=== PATIENT | male | born 1995 | race Caucasian/White ===

== ENCOUNTER 2017-04-21 13:24 | Inpatient (IN) ==
[2017-04-21] MEDS ORDERED: SODIUM CHLORIDE 0.9% 1,000 ML IV STA (14:01)
[2017-04-21] MEDS ORDERED: CLINDAMYCIN INJ 600 MG in PREMIX 1 EACH IV STA (14:09)
[2017-04-21 14:20] LABS: Albumin 3.9 G/DL (3.4-5.0); Bilirubin,Total 0.8 MG/DL (0.2-1.0); Calcium 8.9 MG/DL (8.5-10.1); Lactic Acid 1.5 MMOL/L (0.4-2.0); Osmolality,Calculated 274.5 MOS/KG (273-304); Potassium 3.4 MMOL/L (3.5-5.1); Total Protein 7.1 G/DL (6.4-8.3)
[2017-04-21] MEDS ORDERED: CLINDAMYCIN 600 MG/4 ML VIAL ONE (14:20)
--- NOTE | 2017-04-21 14:27 | Emergency Department Note ---
Arrival - Arrival Chief Complaint: Nausea/Vomiting/Diarrhea Stated Complaint: vomitting black vomit ED Nursing Triage Note: Pt c/o nausea, vomiting, body pain, and chills. Pt was seen here yesterday for a ?abscess on his right arm. Mode of Arrival: Ambulatory Limitations: No Limitations Source: Patient Time Seen by Provider: 04/21/17 13:46 - History of Present Illness HPI Narrative: This is a 21-year-old male patient presents the ED complaining of some fever and chills that began today. Patient also noticed 3 abscesses to the right arm last Tuesday. These places have become much larger and more tender over the last several days. Patient had nausea vomiting since noon today. Patient was seen in the nonurgent yesterday and was given a prescription we have which he has not gotten filled. Patient denies any diarrhea. Patient's past medical history is unremarkable. Patient is a non-smoker. Allergies/Adverse Reactions: Allergies Allergy/AdvReac Type Severity Reaction Status Date / Time loratadine [From Claritin] AdvReac Nose Bleed Verified 04/20/17 11:13 tramadol AdvReac Unknown/Unable Verified 04/20/17 11:13 to obtain Home Medications: Home Medications Medication Instructions Recorded Confirmed Type Clindamycin HCl [Clindamycin Cap] 450 mg PO Q8HR #21 capsule 04/20/17 04/21/17 Rx Review of System - Review of System Constitutional: Present: chills, fever Respiratory: Absent: cough Cardiovascular: Absent: chest pain Gastrointestinal: Present: nausea, vomiting Musculoskeletal: Present: as per HPI, arm pain (Right) Medical,Surgical,& Family Hx - Medical History Medical History: noncontributory - Social History Smoking Status: Current every day smoker Exam Vital Signs: Vital Signs Temperature 99.9 F H 04/21/17 13:33 Pulse Rate 114 H 04/21/17 13:33 Respiratory Rate 20 04/21/17 13:33 Blood Pressure 140/78 04/21/17 13:33 O2 Sat by Pulse Oximetry 97 04/21/17 13:25 - General General appearance: alert, in distress (Secondary to right arm pain) - Head Head exam: Present: atraumatic - Eye Eye exam: Present: normal appearance, PERRL - ENT ENT exam: Present: normal exam - Neck Neck exam: Present: normal inspection - Chest Chest inspection: Present: normal inspection - Respiratory Respiratory exam: Present: normal lung sounds bilaterally. Absent: rales, respiratory distress - Cardiovascular Cardiovascular exam: Present: normal rhythm, tachycardia, normal heart sounds. Absent: murmur - Abdominal Exam Abdominal exam: Present: soft, normal bowel sounds. Absent: distention, tenderness - Extremities Exam Extremities exam: Present: tenderness (Right arm), other (Patient has 3 lesions noted to his right arm with surrounding erythema increased warmth and tenderness. There is no fluctuance noted. There is no drainage at the present time.) - Back Exam Back exam: Present: normal inspection - Neurological Exam Neurological exam: Present: alert, oriented X3. Absent: motor sensory deficit - Psychiatric Psychiatric exam: Present: normal affect, normal mood - Skin Skin exam: Present: warm, other (As noted on extremity exam) Course Course Narrative: Patient discussed with the hospitalist. Results - Labs CBC & BMP: 04/21/17 13:51 04/21/17 13:51 Lab Results: I have reviewed the patients labs Disposition Clinical Impression: Cellulitis of right arm, Possible abscess right arm Case discussed with: patient Disposition: Still a Patient Condition: Guarded Additional Instructions: Admit to Dr. nguyen
[2017-04-21 14:28] LABS: Basophils % 0.3 % (0.0-0.8); Eosinophils # 0.2 10*3/uL (0.0-0.87); Immature Granulocytes % 0.3 %; Immature Granulocytes Absolute 0.05 #; Lymphocytes # 1.8 10*3/uL (1.4-4.0); Lymphocytes % 12.7 % (21.2-54.2); Mean Corpuscular HGB Conc 38.2 GM/DL (32-36); Mean Corpuscular Hemoglobin 32 PG (27-34); Mean Corpuscular Volume 82.4 FL (87-102); Mean Platelet Volume 9.6 FL (9.6-12.0); Monocytes # 1.2 10*3/uL (0.11-0.8); Monocytes % 8.1 % (1.7-12.7); Neutrophils # 11.1 10*3/uL (1.4-7.4); Neutrophils % 77.6 % (38.7-73.9); Platelet Count 206 T/CUMM (130-400); Red Blood Count 4.61 MC/CUMM (3.8-5.5); Red Cell Distribution Width 12.1 % (9.3-17.3); White Blood Count 14.3 T/CUMM (4-12)
[2017-04-21 14:29] LABS: Hemoglobin 14.5 GM/DL (14.0-18.0)
--- NOTE | 2017-04-21 16:16 | Hospitalist History & Physical ---
Assessment and Plan (1) Abscess of right arm Status: Acute Assessment and plan: vancomycin 1500 mg IV every 12 hours, consult Dr. Babcock for drainage Current Visit: No (2) Hypokalemia Status: Acute Assessment and plan: replaced potassium Current Visit: Yes History of Present Illness Chief complaint: arm pain History of present illness: Mr. Godoy is a 21 year old male presents the ED complaining of some fever and chills that began today. Patient also noticed 3 abscesses to the right arm last Tuesday. These places have become much larger and more tender over the last several days. Patient had nausea vomiting since noon today and try to drain them himself. Seen in ED on 04/20/17 and given a prescription for clindamycin but never filled it. Home Medications Medication Instructions Recorded Confirmed Type Clindamycin HCl [Clindamycin Cap] 450 mg PO Q8HR #21 capsule 04/20/17 04/21/17 Rx Allergies Allergy/AdvReac Type Severity Reaction Status Date / Time loratadine [From Claritin] AdvReac Nose Bleed Verified 04/20/17 11:13 tramadol AdvReac Unknown/Unable Verified 04/20/17 11:13 to obtain Medical,Surgical,& Family Hx - Medical History Other: History of: Miscellaneous Medical Problems (abscess ) - Surgical History Additional Surgical History: s/p I&D - Family History Family History: Reports;: Family Diabetes, Family Heart Disease Denies;: Family Cancer, Family Stroke - Social History Smoking Status: Current every day smoker Frequency of Alcohol Use: Occasionally Type of Drug Use: None Marital Status: Lives With:: Spouse Functional capacity: independent ambulation - Constitutional Constitutional: Present: chills, fever(s). Absent: fatigue - EENT Eyes: Absent: blurry vision, diplopia Ears: Absent: decreased hearing, ear discharge Nose, mouth and throat: Absent: headache(s), sore throat - Cardiovascular Cardiovascular: Absent: chest pain at rest, dyspnea - Respiratory Respiratory: Absent: cough, dyspnea - Gastrointestinal Gastrointestinal: Present: coffee ground emesis, nausea, vomiting - Genitourinary Genitourinary: Absent: difficulty urinating, dysuria - Neurological Neurological: Absent: headache(s), syncope - Psychiatric Psychiatric: Absent: anxiety, depression - Endocrine Endocrine: Present: fatigue, heat intolerance - Hematologic/Lymphatic Hematologic/Lymphatic: Absent: easy bleeding, easy bruising Exam - Constitutional Vitals: Period Temp Pulse Resp BP Sys/Huffman Pulse Ox Last 24 Hr 99.9 F-99.9 F 114-114 20-20 140-140/78-78 97 General appearance: normal weight, no acute distress - Head Head exam: Present: normal inspection, normocephalic - Eye Eye exam: Present: EOMI. Absent: scleral icterus Pupils: Present: LUIS FELIPE, normal accommodation - ENT ENT exam: Present: normal exam, normal external ear exam - Neck Neck exam: Absent: lymphadenopathy, thyromegaly - Respiratory Respiratory exam: Present: clear to auscultation bilaterally - Cardiovascular Cardiovascular exam: Present: tachycardia. Absent: systolic murmur - GI/Abdominal GI/Abdominal exam: Present: normal bowel sounds, soft. Absent: tenderness - Extremities Exam Extremities exam: Present: normal inspection (right arm abscesses ), normal capillary refill, other - Neurological Exam Neurological exam: Present: alert, oriented X3 - Psychiatric Psychiatric exam: Present: normal affect, normal mood - Skin Skin exam: Present: warm, erythema, other (wound with necrotic center ) Results - Labs CBC & BMP: 04/21/17 13:51 04/21/17 13:51 Lab Results: I have reviewed the past 24 hour labs
[2017-04-21] MEDS ORDERED: LIDOCAINE 1%/EPI INJ 20 ML VIAL ONE (16:37)
--- NOTE | 2017-04-21 16:48 | General Surgery Consult Note ---
Assessment and Plan (1) Abscess of right arm Status: Acute Assessment and plan: The right arm abscess was treated with incision and drainage in the ER. The remaining two wounds will be okay with observation and antibiotics. Will follow. Current Visit: No History of Present Illness Chief complaint: Right arm pain History of present illness: Mr. Godoy is a 21 year old male with abscesses on right arm. I was consulted for management. Home Medications Medication Instructions Recorded Confirmed Type Clindamycin HCl [Clindamycin Cap] 450 mg PO Q8HR #21 capsule 04/20/17 04/21/17 Rx Allergies Allergy/AdvReac Type Severity Reaction Status Date / Time loratadine [From Claritin] AdvReac Nose Bleed Verified 04/20/17 11:13 tramadol AdvReac Unknown/Unable Verified 04/20/17 11:13 to obtain Medical,Surgical,& Family Hx - Medical History Other: History of: Miscellaneous Medical Problems (abscess ) - Family History Family History: Reports;: Family Diabetes, Family Heart Disease Denies;: Family Cancer, Family Stroke - Social History Smoking Status: Current every day smoker Frequency of Alcohol Use: Occasionally Type of Drug Use: None - Constitutional Constitutional: Present: as per HPI - EENT Nose, mouth and throat: Present: as per HPI - Cardiovascular Cardiovascular: Present: as per HPI - Respiratory Respiratory: Present: as per HPI - Gastrointestinal Gastrointestinal: Present: as per HPI - Genitourinary Genitourinary: Present: as per HPI - Musculoskeletal Musculoskeletal: Present: as per HPI - Neurological Neurological: Present: as per HPI - Endocrine Endocrine: Present: as per HPI Hematologic/Lymphatic: Present: as per HPI Exam - Constitutional Vitals: Period Temp Pulse Resp BP Sys/Huffman Pulse Ox Last 24 Hr 99.9 F-99.9 F 114-114 20-20 140-140/78-78 97 General appearance: no acute distress, over weight - Head Head exam: Present: normal inspection, normocephalic - Eye Eye exam: Present: EOMI Pupils: Present: LUIS FELIPE - ENT ENT exam: Present: normal exam Mouth exam: Present: normal external inspection, normal voice - Neck Neck exam: Present: normal inspection, trachea midline - Respiratory Respiratory exam: Present: clear to auscultation bilaterally. Absent: accessory muscle use, chest wall tenderness - Cardiovascular Cardiovascular exam: Present: RRR. Absent: systolic murmur, tachycardia - GI/Abdominal GI/Abdominal exam: Present: normal bowel sounds, soft. Absent: tenderness, rebound - Extremities Exam Extremities exam: Present: other (3cm abscess right distal arm with erythema. Induration over right elbow and distal right arm) - Back Exam Back exam: Present: normal inspection - Neurological Exam Neurological exam: Present: alert, oriented X3 Speech: Present: normal - Skin Skin exam: Present: normal color, warm Results - Labs CBC & BMP: 04/21/17 13:51 04/21/17 13:51
--- NOTE | 2017-04-21 16:51 | Operative Note ---
Date of procedure: 04/21/17 Pre-op diagnosis: right forearm abscess Post-op diagnosis: same Procedure: Pre-operative diagnosis Right forearm abscess Post-operative diagnosis same Procedures Performed Incision and drainage of complex right forearm abscess Findings Complex right forearm abscess. Loculations broken up. Pus cultured Complications none Blood Loss none Indications Right forearm abscess. Verbal informed consent was obtained Description of Procedure The patient was kept in his ER bed. The right arm was prepped with betadine and draped sterily. Local anesthetic was administerd for a field block around the right forearm abscess. An incision was made with 11 blade scalpel and the loculations were broken up. Pus was cultured. Wound was irrigated and packed with iodoform. The wound was dressed sterily. Post-operative plan Wound care and antibiotics F/u cultures Anesthesia: local Surgeon / Physician: Lester Babcock Estimated blood loss: minimal Specimens: other (cultures) Condition: stable Disposition: PACU Results - Labs CBC & BMP: 04/21/17 13:51 04/21/17 13:51 Discharge Plan - Discharge Data Disposition: Still a Patient - Discharge Medications No Action Clindamycin HCl [Clindamycin Cap] 450 mg PO Q8HR #21 capsule - Follow Up or Referral - Forms/Instructions
[2017-04-21] MEDS ORDERED: ONDANSETRON 4 MG/2 ML VIAL IV PRN (17:40)
[2017-04-21] MEDS ORDERED: DOCUSATE SODIUM 100 MG CAPSULE PO PRN (17:40)
[2017-04-21] MEDS ORDERED: ACETAMINOPHEN 325 MG TABLET PO PRN (17:40)
[2017-04-21] MEDS: SODIUM CHLORIDE 0.9% 1,000 ML IV SCH (18:22)
[2017-04-21] MEDS: VANCOMYCIN INJ 1,500 MG in SODIUM CHLORIDE 0.9% 500 ML IV SCH (19:26)
[2017-04-21 23:02] LABS: Apearance,Urine CLEAR (Clear); Bilirubin,Urine Negative (Negative); Blood, Urine Negative (Negative); Glucose,Urine (UA) Negative (Negative); Ketones,Urine Negative (Negative); Mucus,Urine Occasional /LPF (Occasional); Nitrite,Urine Negative (Negative); Protein,Urine Negative; Urine Color Yellow (Yellow); WBC,Urine <1 /HPF (0-6)
[2017-04-21 23:06] LABS: Barbiturates Screen,Urine Negative (Negative); Benzodiazepines Screen,Urine Negative (Negative); Cannabinoid Screen,Urine Negative (Negative); Opiate Screen,Urine Negative (Negative); Phencyclidine Screen,Urine Negative (Negative)
[2017-04-22] MEDS: VANCOMYCIN INJ 1,500 MG in SODIUM CHLORIDE 0.9% 500 ML IV SCH ×3 (03:13→19:21)
[2017-04-22] MEDS: POTASSIUM CHLORIDE 20 MEQ TABLET PO PRN ×2 (03:53→06:29)
[2017-04-22] MEDS: HYDROmorphone 2 MG/1 ML VIAL IV PRN ×3 (03:54→21:55)
--- NOTE | 2017-04-22 03:57 | Event Note ---
General Surgery Progress Note Chief complaint This patient is a 21-year-old man who is admitted with multiple abscesses on his right arm largest of which was treated in the ER with incision and drainage on 04/21/2017 Interval history No events overnight. Patient is resting comfortably this morning. No fevers. Physical exam Patient is afebrile with normal vital signs His right arm wound was unpacked and redress. There was some additional pus drained from a medial pocket but this was removed and wound was clean and there is no further purulent drainage and no necrotic tissue seen There is still significant amount of erythema and induration around the abscess cavity Labs None new Imaging None new Assessment and plan Continue antibiotics and wound care Plan for discharge home tomorrow if wound is improving
[2017-04-22 07:10] LABS: Basophils % 0.4 % (0.0-0.8); Eosinophils # 0.2 10*3/uL (0.0-0.87); Eosinophils % 2.1 % (0.00-10.9); Hematocrit 35.7 VOL% (42.0-52.0); Hemoglobin 13.2 GM/DL (14.0-18.0); Immature Granulocytes % 0.5 %; Immature Granulocytes Absolute 0.04 #; Lymphocytes # 2.7 10*3/uL (1.4-4.0); Mean Corpuscular Hemoglobin 31 PG (27-34); Mean Corpuscular Volume 84.2 FL (87-102); Mean Platelet Volume 9.7 FL (9.6-12.0); Monocytes # 0.7 10*3/uL (0.11-0.8); Monocytes % 8.2 % (1.7-12.7); Neutrophils # 4.7 10*3/uL (1.4-7.4); Neutrophils % 56.8 % (38.7-73.9); Platelet Count 163 T/CUMM (130-400); Red Blood Count 4.24 MC/CUMM (3.8-5.5); Red Cell Distribution Width 12.1 % (9.3-17.3); White Blood Count 8.3 T/CUMM (4-12)
[2017-04-22 07:48] LABS: Calcium 7.6 MG/DL (8.5-10.1); Magnesium 1.9 MG/DL (1.8-2.4); Osmolality,Calculated 281.1 MOS/KG (273-304); Potassium 3.4 MMOL/L (3.5-5.1); Risk Ratio 2.82; Thyroid Stimulating Hormone 1.24 uIU/ml (0.358-3.74); VLDL CHOLESTEROL 12.6 MG/DL
[2017-04-22] MEDS: PANTOPRAZOLE 40 MG TABLET PO SCH (08:04)
[2017-04-22] MEDS: SODIUM CHLORIDE 0.9% 1,000 ML IV SCH ×4 (08:07→18:48)
--- NOTE | 2017-04-22 10:47 | Discharge Summary ---
<Serge Schultzdra - Last Filed: 04/22/17 10:28> Hospital Course - Hospital Course Hospital Course: Mr Godoy 21 y/o presented to the ED 04/21/17 for further evaluation of fever, chills, N/V, and right arm abscess. In ED: WBC 14.3, Urinalysis negative. Hospital Medicine consulted for admission and further treatment of right arm abscess. Admit and started vancomycin, general surgery consulted. Wound cultures obtained preliminary gram positive cocci pending final culture, continue vancomycin. Surgery was able to perform incision and drainage of the right arm abscess and agreed with antibiotic coverage. Consulted and Initiated wound care per protocol. Today patient is stable. Wound is improving without any further events of fever. He will be discharged home on antibiotic therapy. He will need to follow up with general surgeon (Dr Babcock). He will need to follow up with primary care physician. Discharge Plan - Discharge Medications No Action Clindamycin HCl [Clindamycin Cap] 450 mg PO Q8HR #21 capsule - Follow Up or Referral - Forms/Instructions Exam - Constitutional Vitals: Period Temp Pulse Resp BP Sys/Huffman Pulse Ox Last 24 Hr 97.3 F-98.1 F 55-67 17-20 117-133/58-78 95-99 Discharge Results Procedures and tests throughout hospitalization: Pending Orders 04/21/17 13:51 Wound Culture Routine 04/21/17 14:07 Blood Culture Stat Labs on day of discharge: Labs from last 24 hours 04/23/17 04/23/17 04/22/17 06:02 06:02 19:00 WBC 6.2 RBC 4.22 Hgb 13.0 L Hct 35.8 L MCV 84.8 L MCH 31 MCHC 36.3 H RDW 11.9 Plt Count 150 MPV 9.4 L Neut % (Auto) 51.9 Lymph % (Auto) 33.4 Karnes % (Auto) 10.2 Eos % (Auto) 3.4 Baso % (Auto) 0.6 Neut # (Auto) 3.2 Lymph # (Auto) 2.1 Karnes # (Auto) 0.6 Eos # (Auto) 0.2 Baso # (Auto) 0.0 Immature Gran % 0.5 Nucleated RBC % 0.0 Immature Gran # 0.03 Nucleated RBCs # 0.00 Immature Plt Fraction 0.0 Sodium 141 Potassium 4.2 4.0 Chloride 109 H Carbon Dioxide 24 Anion Gap 12.2 BUN 9 Creatinine 0.80 GFR Calculation 157 BUN/Creatinine Ratio 11.00 Glucose 105 Calculated Osmolality 279.3 Calcium 8.3 L Vancomycin Trough 04/22/17 18:09 WBC RBC Hgb Hct MCV MCH MCHC RDW Plt Count MPV Neut % (Auto) Lymph % (Auto) Karnes % (Auto) Eos % (Auto) Baso % (Auto) Neut # (Auto) Lymph # (Auto) Karnes # (Auto) Eos # (Auto) Baso # (Auto) Immature Gran % Nucleated RBC % Immature Gran # Nucleated RBCs # Immature Plt Fraction Sodium Potassium Chloride Carbon Dioxide Anion Gap BUN Creatinine GFR Calculation BUN/Creatinine Ratio Glucose Calculated Osmolality Calcium Vancomycin Trough 15.0 Preliminary micro results at discharge 04/21/17 14:07 Blood Culture - Preliminary Blood No growth at 1 day 04/21/17 14:07 Blood Culture - Preliminary Blood No growth at 1 day 04/21/17 13:51 Wound Culture - Preliminary Abscess - Abscess Gram Positive Cocci DS: Provider Date of admission: 04/21/17 15:23 Primary care physician: . No PCP Attending physician on admission: Julián Arriaga MD Consults: 04/21/17 17:40 Consult to Pharmacy [CONS] Routine Reason for Pharmacy Consult: Dose/Manage Vancomycin Consult to Physician [CONS] Routine Comment: right arm abscess Consulting Provider: Lester Babcock Consult Notification Comment: NOTE ALREADY IN COMPUTER FROM ER Discharging clinician: Kourtney Schultz NP <Mayco Anders - Last Filed: 04/23/17 10:57> Discharge Results - Impressions Patient seen and examined. I agree with the information documented by LORRAINE Schultz. Patient is hemodynamically and clinically stable. He is safe for discharge. Active Issues: 1. RUE abscesses: one over elbow and on inner forearm: healing and did not require I&D. Right lateral forearm abscess underwent I&D. Wound culture grew GPC. Bxc showed no growth. He will be discharged on bactrim for 10 days. He will follow up with Dr. Babcock on 05/02/17. He has received teaching on local wound care and demonstrates understanding. 2. Leukocytosis: resolved. Plan: discharge on norco and bactrim. Follow up with Dr. Babcock on 05/02/17. Local wound care every day. Discharge medications: please see list Consult: Dr. Babcock of general surgery Function, locomotion, and elimination: independent
--- NOTE | 2017-04-22 12:34 | Hospitalist Progress Note ---
Hospitalist: Subjective Interval history: Patient states that he does not feel well. He is very vague. Right wrist abscess I&D today. Exam - Constitutional Vitals: Period Temp Pulse Resp BP Sys/Huffman Pulse Ox Last 24 Hr 97.1 F-99.9 F 59-114 16-20 112-140/54-79 94-100 General appearance: normal weight, no acute distress, over weight - Head Head exam: Present: normal inspection, normocephalic - Eye Eye exam: Present: EOMI, conjunctival injection Pupils: Present: LUIS FELIPE - Respiratory Respiratory exam: Present: clear to auscultation bilaterally. Absent: rales, rhonchi, wheezes - Cardiovascular Cardiovascular exam: Present: regular rate and rhythm - GI/Abdominal GI/Abdominal exam: Present: normal bowel sounds, soft - Extremities Exam Extremities exam: Absent: edema (right arm; 3 abscess formations near elbow and forearm; s/p I&D of right sided forearm abscess with induration, tenderness, and erytheam) Results - Labs CBC & BMP: 04/22/17 06:21 04/22/17 06:21 - Impressions 1. Right arm abscess; wound grew GPC 2. Leukocytosis, resolved Plan: continue vancomycin; appreciate help from surgery; continue local wound care
--- NOTE | 2017-04-22 16:50 | ECHO Report ---
Janes Godoy Exam Date: 04/22/2017 08:58 Referring Physician: Technologist: erick Childs ARDMS, RVT Age: 21 Ht (in): 68 Wt (lb): 220 Gender: M Exam Location: [facility] Echo Indications: Vomitting black vomit, evaluation BP: 125 / 62 HR: 54 Rhythm: Sinus Technical Quality: Good IMPRESSIONS Normal left ventricular cavity size. Moderate left ventricular hypertrophy. Left ventricular ejection fraction is estimated at 60 %. Mildly increased right ventricular size. The right atrium is normal in size. The left atrium is normal in size. Morphologically normal mitral valve without significant stenosis or prolapse. There is no mitral regurgitation. Morphologically normal aortic valve without significant sclerosis or stenosis. There is no aortic regurgitation. Morphologically normal tricuspid valve without significant stenosis or regurgitation. Pulmonary artery systolic pressure is normal. Morphologically normal tricuspid valve without significant stenosis or regurgitation. Pulmonary artery systolic pressure is normal. Morphologically normal pulmonic valve. Mild pulmonary valve regurgitation. Normal pericardium without effusion. Normal ascending aorta dimension. MEASUREMENTS (Male / Female) Normal Values 2D ECHO LV Diastolic Diameter PLAX 4.9 cm 4.2 - 5.9 / 3.9 - 5.3 cm LV Systolic Diameter PLAX 2.9 cm LV Fractional Shortening PLAX 40.1 % IVS Diastolic Thickness 2.1 cm 0.6 - 1.0 / 0.6 - 0.9 cm LVPW Diastolic Thickness 1.1 cm 0.6 - 1.0 / 0.6 - 0.9 cm RV Internal Dim ED PLAX 3.8 cm Aortic Root Diameter 3.3 cm LA Systolic Diameter LX 3.4 cm 3.0 - 4.0 / 2.7 - 3.8 cm DOPPLER TR Peak Velocity 183.0 cm/s TR Peak Gradient 13.4 mmHg FINDINGS Left Ventricle Normal left ventricular cavity size. Moderate left ventricular hypertrophy. Left ventricular ejection fraction is estimated at 60 %. Right Ventricle Mildly increased right ventricular size. Right Atrium The right atrium is normal in size. Left Atrium The left atrium is normal in size. Mitral Valve Morphologically normal mitral valve without significant stenosis or prolapse. There is no mitral regurgitation. Aortic Valve Morphologically normal aortic valve without significant sclerosis or stenosis. There is no aortic regurgitation. Tricuspid Valve Morphologically normal tricuspid valve without significant stenosis or regurgitation. Pulmonary artery systolic pressure is normal. Pulmonic Valve Morphologically normal pulmonic valve. Mild pulmonary valve regurgitation. Pericardium Normal pericardium without effusion. Aorta Normal ascending aorta dimension. Domingo Pack MD (Electronically Signed) Final Date: 22 April 2017 16:49
[2017-04-22] MEDS ORDERED: KETOROLAC 15 MG/1 ML VIAL IV ONE (17:19)
[2017-04-23] MEDS: VANCOMYCIN INJ 1,500 MG in SODIUM CHLORIDE 0.9% 500 ML IV SCH ×2 (02:39→13:46)
[2017-04-23 06:27] LABS: Basophils % 0.6 % (0.0-0.8); Eosinophils # 0.2 10*3/uL (0.0-0.87); Eosinophils % 3.4 % (0.00-10.9); Hematocrit 35.8 VOL% (42.0-52.0); Immature Granulocytes % 0.5 %; Immature Granulocytes Absolute 0.03 #; Lymphocytes # 2.1 10*3/uL (1.4-4.0); Lymphocytes % 33.4 % (21.2-54.2); Mean Corpuscular HGB Conc 36.3 GM/DL (32-36); Mean Corpuscular Hemoglobin 31 PG (27-34); Mean Corpuscular Volume 84.8 FL (87-102); Mean Platelet Volume 9.4 FL (9.6-12.0); Monocytes # 0.6 10*3/uL (0.11-0.8); Monocytes % 10.2 % (1.7-12.7); Neutrophils # 3.2 10*3/uL (1.4-7.4); Neutrophils % 51.9 % (38.7-73.9); Platelet Count 150 T/CUMM (130-400); Red Blood Count 4.22 MC/CUMM (3.8-5.5); Red Cell Distribution Width 11.9 % (9.3-17.3); White Blood Count 6.2 T/CUMM (4-12)
[2017-04-23 07:01] LABS: Calcium 8.3 MG/DL (8.5-10.1); Osmolality,Calculated 279.3 MOS/KG (273-304); Potassium 4.2 MMOL/L (3.5-5.1)
[2017-04-23] MEDS: HYDROmorphone 2 MG/1 ML VIAL IV PRN (10:05)
[2017-04-23] MEDS: PANTOPRAZOLE 40 MG TABLET PO SCH (10:11)
[2017-04-23] MEDS: SODIUM CHLORIDE 0.9% 1,000 ML IV SCH ×2 (10:12→13:46)
--- NOTE | 2017-04-23 10:41 | Event Note ---
The patient is doing well after incision and drainage of right forearm abscess. The area over his right elbow and his right inner arm are healing with antibiotics alone and do not require drainage. I am okay with him being discharged home because the erythema is decreasing as is the induration. There is no further necrotic tissue or purulent drainage from his arm. If he goes home I would send him on a 10 day course of Bactrim double strength twice daily and pain medications and I will see him back in clinic on Tuesday, May 02 for a wound check.
[2017-04-23 12:59] VITALS: BP 122/53
== END 2017-04-23 13:20 | disposition home or self-care (01) | DRG 603 ==
LOC: N.ED 13:24 → N.EDINP 15:23 → SUATTDRO 15:23 → N.EDINP 17:32 → N.3E 17:37
PROVIDERS: ADMIT Hospitalist; ATTEND Internal Medicine